=== PATIENT | male | born 1955 | race Caucasian/White ===

== ENCOUNTER 2016-11-18 12:25 | Inpatient (IN) | payer OTHER ==
--- NOTE | ~2016-11-18 | HP ---
History And Physical [place] [id number] [facility] [place]. [address] NAME: AMELIA SHIPMAN : 59 STATUS : ADM IN [facility]#: [id number] AGE: 61 ADM/REG DATE : 11/18/16 MR#: [id number] REPORT SERV DATE: 11/19/16 DICTATED BY: JOMAR SEPULVEDA DATE: 11/18/16 REPORT STATUS : Draft TRANSCRIBED BY: MODSteven DATE: 11/18/16 DATE OF ADMISSION: 11/18/2016 REASON FOR ADMISSION: NSTEMI. HISTORY OF PRESENT ILLNESS: Mr. Shipman is a 61-year-old gentleman with a history of CAD status post four-vessel CABG ([address]pp), significant carotid artery disease status post bilateral carotid endarterectomy, significant peripheral vascular disease, status post multiple stents in the bilateral lower extremity vessels. and renal cell carcinoma of his left kidney status post left nephrectomy, and active tobacco smoking (one pack per day, 50-pack years) who presents to [facility] with complaints of substernal chest pressures that are radiating to his left arm, as well as his left neck over the past three to four days. The patient states that he was in his usual state of health up until that time when he started to develop pain in the central chest at rest while not exerting himself at home. These were with infrequent dosing with sublingual nitroglycerin, but continued over the course of the past three to four days and have progressed and he is getting less relief and chest pressure/pains are becoming more severe. Over the past one day, he has also had associated lightheadedness with his chest pain. Collectively, these symptoms prompted him to present to [facility] for further evaluation and cardiac care. He last saw Dr. Vallecillo approximately two to two and a half years ago. ALLERGIES: NONE. PAST MEDICAL HISTORY: As above. FAMILY HISTORY: Significant for heart disease in his father diagnosed in his 60s. No one else per the patient notes. SOCIAL HISTORY: Denies drug use or drinking alcohol. He is an active tobacco smoker of approximately one pack per day (50-pack years total). REVIEW OF SYSTEMS: As above, all other systems otherwise negative. PHYSICAL EXAMINATION: VITAL SIGNS: Blood pressure 138/77, pulse 73, temperature 98.4. GENERAL: Well developed, well nourished, no acute distress. NEURO: Awake, alert and oriented x3; no focal deficits, appropriate mood. HEENT: Moist mucous membranes, anicteric sclerae, no nasal discharge. NECK: No JVD, no carotid bruit. LUNGS: Clear to auscultation bilaterally, no wheezes, rales or rhonchi. CV: Regular rhythm, normal S1/S2, no murmurs, rubs or gallops. ABDOMEN: Soft, non-tender, non-distended, no rebound or guarding. EXTREMITIES: No pitting edema, normal distal pulses. SKIN: Warm, dry and intact; no rash. History And Physical [address] [address] NAME: AMELIA SHIPMAN : 59 STATUS : ADM IN [facility]#: [id number] AGE: 61 ADM/REG DATE : 11/18/16 MR#: [id number] REPORT SERV DATE: 11/19/16 DICTATED BY: JOMAR SEPULVEDA DATE: 11/18/16 REPORT STATUS : Draft TRANSCRIBED BY: MOSHE DATE: 11/18/16 PERTINENT TEST FINDINGS: EKG, rhythm/sinus bradycardia. No pathologic Q-waves. Bilateral T wave inversions. Troponin of 0.2, creatinine 1.79, previously ranging from 1.2-2.2. Glucose 97, potassium 4.4. Hemoglobin 14.1, white blood cell count 8.7. Magnesium 1.8. IMPRESSION AND PLAN: Mr. Shipman is a 61-year-old gentleman with a history of significant cardiovascular disease, coronary, carotid, iliac/peripheral), who presents with chest pain radiating to his left arm and left neck in the setting of troponin of 0.22 due to non-ST elevation myocardial infarction. I spoke with him at length regarding the probable need to proceed with coronary angiography with plus or minus percutaneous coronary intervention. He understands the risks and benefits of this procedure including but not limited to, myocardial infarction, , stroke, kidney injury, failure, and given the complications, in particular kidney injury with his history of one kidney that is currently functioning poorly (creatinine 1.8), we will medically manage him for the time being. I have consulted Nephrology to provide guidance on renal management should he need angiography over the coming days. Otherwise, pending his troponin trend, clinical course, as well as other objective findings on his echocardiogram, it may be in his better overall interest to forego coronary angiography at this point in time. He is amenable with this plan and would like to hold off on angiography until Nephrology sees him and we have further data to guide us. Otherwise, I will start him on a heparin drip, continue aspirin, statin, and beta-kiley. His enzymes will be trended. Rhythm will be checked. VR/MODL Jomar Sepulveda MD / [id number] CC: David Maldonado M.D.
--- NOTE | ~2016-11-18 | CN ---
Consultation Report [facility] [address] [place]. [address] NAME: AMELIA SHIPMAN : 59 STATUS : ADM IN [facility]#: [id number] AGE: 61 ADM/REG DATE : 11/18/16 MR#: [id number] REPORT SERV DATE: 11/18/16 DICTATED BY: HILARIA ZELAYA DATE: 11/18/16 REPORT STATUS : Draft TRANSCRIBED BY: MODL DATE: 11/18/16 NEPHROLOGY CONSULT DATE OF CONSULTATION: 11/18/2016 REQUESTING PHYSICIAN: Jomar Alejandro MD REASON FOR CONSULT: Chronic kidney disease, solitary kidney, in a patient who needs cardiac catheterization. HISTORY OF PRESENT ILLNESS: Mr. Shipman is a 61-year-old white male, with chronic kidney disease. His baseline creatinine is 1.3 to 1.6 since April 2014. He is status post left nephrectomy for cancer in July 2012. He follows with Dr. Hernandez in the office of [facility], but recent labs from the hospice are not available at the time of this dictation. However, most recent creatinine prior to today was 1.37 in May 2016. He saw Urology in the office yesterday and had a normal cystoscopy and was given one dose of Cipro. He came in today for worsening unstable angina that began on Tuesday night 11/15/2016. Chest pain today at 10:00 a.m. worsened and radiated to his left jaw and left arm, prompting his visit to the ER. Here a chest x-ray showed no infiltrates and troponin was 0.20 and creatinine of 1.79. PAST MEDICAL HISTORY: 1. CKD, baseline creatinine 1.3 to 1.6 since April 2014. 2. Left nephrectomy for cancer in July 2012. Patent right renal artery on arteriogram in November 2012. 3. CABG x4 in 2005. 4. Hypertension. 5. Hyperlipidemia. 6. Bilateral carotid endarterectomies in 2013. 7. Bilateral iliac artery stents in 2012. MEDICATIONS: Allopurinol, amlodipine, aspirin, Lipitor, Coreg, Prilosec, and Zoloft. FAMILY HISTORY: No ESRD. SOCIAL HISTORY: Longtime smoker. . Lives in [place], [place]. 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 REVIEW OF SYSTEMS: Please see HPI. Denies OTC NSAIDs other than daily aspirin. Denies urinary outlet obstructive symptoms. Consultation Report [facility] [address] [place]. [address] NAME: AMELIA SHIPMAN : 59 STATUS : ADM IN PAT#: [id number] AGE: 61 ADM/REG DATE : 11/18/16 MR#: [id number] REPORT SERV DATE: 11/18/16 DICTATED BY: HILARIA ZELAYA DATE: 11/18/16 REPORT STATUS : Draft TRANSCRIBED BY: MOSHE DATE: 11/18/16 PHYSICAL EXAMINATION: VITAL SIGNS: Temperature 97, pulse 60, respirations 18, blood pressure was 64/87, and 93% sat on room air. GENERAL: He is a pleasant middle-aged white male, awake, alert, oriented, and cooperative with the exam. Good historian, accompanied by supportive family. He sitting in hospital bed. In no distress. HEENT: Sclerae without icterus. Conjunctivae not injected. Oropharynx is clear. NECK: No JVD. LUNGS: Bilateral rhonchi without dyspnea or tachypnea on room air. CARDIOVASCULAR: Bradycardic rate with regular rhythm. ABDOMEN: Soft, nontender, and nondistended. Bowel sounds present throughout. No rebound, guarding, or peritoneal signs. No reproducible chest wall tenderness. EXTREMITIES: Without edema. SKIN: Exam shows bruise on the right hand. NEURO: Grossly nonfocal. GENITOURINARY: Deferred. PSYCH: Mood and affect are appropriate. MUSCULOSKELETAL: Shows no active tenosynovitis or gout. LABORATORY DATA: Sodium 141, potassium 4.4, bicarb 27, BUN 18, creatinine 1.8. GFR 41 mL/minute. Calcium 9, magnesium 1.8. Troponin 0.2. INR 1.0, white count 8.7, with 10% eosinophils, hemoglobin 14.1, and platelets 262,000. ASSESSMENT/PLAN: Mr. Shipman has chronic kidney disease, with previous baseline creatinine of 1.3 to 1.6, and prior left nephrectomy, coronary artery disease, status post bypass surgery, hypertension, hyperlipidemia, carotid endarterectomies, and bilateral iliac artery stents. Now presents with non-ST elevation and unstable angina. Long discussion with patient and family. They understands the risk of worsening acute kidney injury and possible dialysis dependence with contrast. However, if renal function tomorrow is not worse, would recommend proceeding with cardiac catheterization, based on his clinical picture if okay with Cardiology. IV fluids tonight. No JANAY inhibitor or ARB at this time. Watch labs closely. We will follow with you. STANFORD/MOSHE Hilaria Zelaya M.D. / [id number] CC: Jomar Alejandro MD Consultation Report [address] [place]. [address] NAME: AMELIA SHIPMAN : 59 STATUS : ADM IN PAT#: [id number] AGE: 61 ADM/REG DATE : 11/18/16 MR#: [id number] REPORT SERV DATE: 11/18/16 DICTATED BY: HILARIA ZELAYA DATE: 11/18/16 REPORT STATUS : Draft TRANSCRIBED BY: MOSHE DATE: 11/18/16 David Maldonado M.D. Aakash Hernandez M.D.
[2016-11-18 10:55] LABS: BASOPHILS 0.6 %; BASOPHILS ABSOLUTE 0.05 10/3/uL (0.0-0.16); EOSINOPHILS 9.9 %; EOSINOPHILS ABSOLUTE 0.86 10/3/uL (0.0-0.53); HEMATOCRIT 42.4 % (40.0-51.0); HEMOGLOBIN 14.1 g/dL (13.6-17.8); IMMATURE GRANULOCYTES 0.2 %; IMMATURE GRANULOCYTES ABSOLUTE 0.02 10/3/uL (0.0-0.11); LYMPHOCYTES 32.5 %; LYMPHOCYTES ABSOLUTE 2.82 10/3/uL (0.67-4.30); MEAN CORPUS HGB CONC 33.3 g/dL (32.0-36.0); MEAN CORPUSCULAR HEMOGLOB 30.1 pg (26.0-34.0); MEAN CORPUSCULAR VOLUME 90.6 fL (80-100); MEAN PLATELET VOLUME 10.7 fL (9.2-13.0); MONOCYTES 7.2 %; MONOCYTES ABSOLUTE 0.62 10/3/uL (0.21-1.20); NEUTROPHILS 49.6 %; RBC DISTRIBUTION WIDTH 14.1 % (12.0-16.0); RED CELL COUNT 4.68 10/6/uL (4.7-6.1); WHITE BLOOD CELLS 8.7 10/3/uL (4.5-10.5)
[2016-11-18 10:58] LABS: MANUAL DIFF NO %; PLATELET COUNT 262 10/3/uL (150-400)
[2016-11-18 11:03] LABS: PARTIAL THROMBO TIME 28.6 SEC (22.5-37.2); PROTIME (NOT ORD) 12.8 SEC (12.0-14.5)
[2016-11-18 11:11] LABS: BUN (BLOOD UREA NITROGEN) 18 MG/DL (6-23); CHLORIDE, SERUM 106 MMOL/L (96-112); CO2 (CARBON DIOXIDE) 27 MMOL/L (24-34); CREATININE 1.79 MG/DL (0.70-1.30); GFR AFRICAN AMERICAN 47 ML/MIN (>=60); GFR NON AFRICAN AMERICAN 41 ML/MIN (>=60); GLUCOSE, SERUM 97 MG/DL (60-99); POTASSIUM, SERUM 4.4 MMOL/L (3.5-5.3); SODIUM, SERUM 141 MMOL/L (135-148)
[2016-11-18 11:14] LABS: CHEST PAIN PROFILE TAT 0 Hrs 23 Mins
[~2016-11-18 12:25] MED LIST: ASAB PO; ASABAYER PO; ASMANEX INH; CHANTIX1 PO; COREG3 PO; COREG6 PO; GLUCPH PO; LIPITOR20 PO; LIPITOR40 PO; MICARDIS80 PO; NITROSTAT0.4 MG SL; NORCO1 TA1 PO; NORV5 PO; PERCOCET1 TA2 PO; PLAVIX PO; PLETAL50 PO; PRAVACHOL40 MG PO; PRILO PO; PRILOSEC40 MG PO; VICODIN HP1 TAB PO; VYTORIN 10/40 T1 TAB PO; Z100 PO; Z300 PO; ZOL50 PO
[2016-11-18 13:22] LABS: CPK 43 U/L (0-200)
[2016-11-18 13:23] LABS: CK-MB 0.7 NG/ML
[2016-11-18 17:09] LABS: CK-MB 0.6 NG/ML; CPK 39 U/L (0-200)
[2016-11-18 17:10] LABS: TROPONIN I 0.19 NG/ML (<0.05)
[2016-11-18 23:17] LABS: CK-MB < 0.5 NG/ML; CPK 42 U/L (0-200); TROPONIN I 0.25 NG/ML (<0.05)
[2016-11-19 04:32] LABS: BASOPHILS 0.6 %; BASOPHILS ABSOLUTE 0.05 10/3/uL (0.0-0.16); EOSINOPHILS 7.5 %; EOSINOPHILS ABSOLUTE 0.59 10/3/uL (0.0-0.53); HEMATOCRIT 40.1 % (40.0-51.0); HEMOGLOBIN 13.7 g/dL (13.6-17.8); IMMATURE GRANULOCYTES 0.3 %; IMMATURE GRANULOCYTES ABSOLUTE 0.02 10/3/uL (0.0-0.11); LYMPHOCYTES ABSOLUTE 3.06 10/3/uL (0.67-4.30); MEAN CORPUS HGB CONC 34.2 g/dL (32.0-36.0); MEAN CORPUSCULAR HEMOGLOB 31.2 pg (26.0-34.0); MEAN CORPUSCULAR VOLUME 91.3 fL (80-100); MEAN PLATELET VOLUME 10.8 fL (9.2-13.0); MONOCYTES 7.4 %; MONOCYTES ABSOLUTE 0.58 10/3/uL (0.21-1.20); NEUTROPHILS 45.2 %; NEUTROPHILS ABSOLUTE 3.55 10/3/uL (2.02-8.40); PLATELET COUNT 225 10/3/uL (150-400); RED CELL COUNT 4.39 10/6/uL (4.7-6.1); WHITE BLOOD CELLS 7.9 10/3/uL (4.5-10.5)
[2016-11-19 04:36] LABS: MANUAL DIFF NO %
[2016-11-19 04:56] LABS: BUN (BLOOD UREA NITROGEN) 19 MG/DL (6-23); CALCIUM, SERUM 8.7 MG/DL (8.5-10.4); CHLORIDE, SERUM 108 MMOL/L (96-112); CHOL/HDL RATIO(NOT ORDER) 6.3 (0-5); CHOLESTEROL 219 MG/DL (< 200); CO2 (CARBON DIOXIDE) 26 MMOL/L (24-34); CPK 35 U/L (0-200); CREATININE 1.75 MG/DL (0.70-1.30); GFR AFRICAN AMERICAN 48 ML/MIN (>=60); GFR NON AFRICAN AMERICAN 42 ML/MIN (>=60); GLUCOSE, SERUM 86 MG/DL (60-99); HDL CHOLESTEROL 35 MG/DL (> 39); LDL CHOLESTEROL 137 MG/DL (< 130); NON-HDL CHOLESTEROL 184 MG/DL (< 160); POTASSIUM, SERUM 4.8 MMOL/L (3.5-5.3); SGPT(ALT) 24 U/L (5-65); SODIUM, SERUM 143 MMOL/L (135-148); TRIGLYCERIDE 237 MG/DL (< 150)
[2016-11-19 05:02] LABS: CK-MB 0.8 NG/ML; TROPONIN I 0.25 NG/ML (<0.05)
[2016-11-19 10:24] LABS: BASOPHILS 0.6 %; BASOPHILS ABSOLUTE 0.05 10/3/uL (0.0-0.16); EOSINOPHILS 8.3 %; EOSINOPHILS ABSOLUTE 0.67 10/3/uL (0.0-0.53); HEMATOCRIT 42.6 % (40.0-51.0); IMMATURE GRANULOCYTES 0.1 %; IMMATURE GRANULOCYTES ABSOLUTE 0.01 10/3/uL (0.0-0.11); LYMPHOCYTES 32.4 %; LYMPHOCYTES ABSOLUTE 2.62 10/3/uL (0.67-4.30); MEAN CORPUS HGB CONC 32.9 g/dL (32.0-36.0); MEAN CORPUSCULAR HEMOGLOB 30.1 pg (26.0-34.0); MEAN CORPUSCULAR VOLUME 91.6 fL (80-100); MEAN PLATELET VOLUME 10.6 fL (9.2-13.0); MONOCYTES 6.8 %; MONOCYTES ABSOLUTE 0.55 10/3/uL (0.21-1.20); NEUTROPHILS 51.8 %; NEUTROPHILS ABSOLUTE 4.19 10/3/uL (2.02-8.40); PLATELET COUNT 230 10/3/uL (150-400); RBC DISTRIBUTION WIDTH 14.3 % (12.0-16.0); RED CELL COUNT 4.65 10/6/uL (4.7-6.1); WHITE BLOOD CELLS 8.1 10/3/uL (4.5-10.5)
[2016-11-19 10:25] LABS: MANUAL DIFF NO %
[2016-11-19 10:31] LABS: PROTIME (NOT ORD) 13.1 SEC (12.0-14.5)
[2016-11-19 10:40] LABS: BUN (BLOOD UREA NITROGEN) 16 MG/DL (6-23); CALCIUM, SERUM 8.9 MG/DL (8.5-10.4); CHLORIDE, SERUM 107 MMOL/L (96-112); CHOL/HDL RATIO(NOT ORDER) 6.2 (0-5); CHOLESTEROL 237 MG/DL (< 200); CK-MB 0.6 NG/ML; CO2 (CARBON DIOXIDE) 28 MMOL/L (24-34); CPK 29 U/L (0-200); CREATININE 1.52 MG/DL (0.70-1.30); GFR AFRICAN AMERICAN 57 ML/MIN (>=60); GFR NON AFRICAN AMERICAN 49 ML/MIN (>=60); GLUCOSE, SERUM 99 MG/DL (60-99); HDL CHOLESTEROL 38 MG/DL (> 39); LDL CHOLESTEROL 150 MG/DL (< 130); NON-HDL CHOLESTEROL 199 MG/DL (< 160); POTASSIUM, SERUM 4.3 MMOL/L (3.5-5.3); SODIUM, SERUM 142 MMOL/L (135-148); TRIGLYCERIDE 248 MG/DL (< 150); TROPONIN I 0.16 NG/ML (<0.05)
[2016-11-20 05:12] LABS: BASOPHILS 0.8 %; BASOPHILS ABSOLUTE 0.04 10/3/uL (0.0-0.16); EOSINOPHILS 9.7 %; HEMATOCRIT 39.4 % (40.0-51.0); HEMOGLOBIN 13.3 g/dL (13.6-17.8); IMMATURE GRANULOCYTES 0.2 %; IMMATURE GRANULOCYTES ABSOLUTE 0.01 10/3/uL (0.0-0.11); LYMPHOCYTES 36.6 %; LYMPHOCYTES ABSOLUTE 1.89 10/3/uL (0.67-4.30); MANUAL DIFF NO %; MEAN CORPUS HGB CONC 33.8 g/dL (32.0-36.0); MEAN CORPUSCULAR HEMOGLOB 30.9 pg (26.0-34.0); MEAN CORPUSCULAR VOLUME 91.6 fL (80-100); MONOCYTES 9.3 %; MONOCYTES ABSOLUTE 0.48 10/3/uL (0.21-1.20); NEUTROPHILS 43.4 %; NEUTROPHILS ABSOLUTE 2.25 10/3/uL (2.02-8.40); PLATELET COUNT 200 10/3/uL (150-400); RBC DISTRIBUTION WIDTH 14.2 % (12.0-16.0); WHITE BLOOD CELLS 5.2 10/3/uL (4.5-10.5)
[2016-11-20 05:20] LABS: BUN (BLOOD UREA NITROGEN) 14 MG/DL (6-23); CALCIUM, SERUM 8.7 MG/DL (8.5-10.4); CHLORIDE, SERUM 110 MMOL/L (96-112); CO2 (CARBON DIOXIDE) 25 MMOL/L (24-34); CREATININE 1.48 MG/DL (0.70-1.30); GFR AFRICAN AMERICAN 59 ML/MIN (>=60); GFR NON AFRICAN AMERICAN 51 ML/MIN (>=60); GLUCOSE, SERUM 96 MG/DL (60-99); PHOSPHORUS, SERUM 3.4 MG/DL (2.5-4.5); POTASSIUM, SERUM 4.3 MMOL/L (3.5-5.3); SODIUM, SERUM 143 MMOL/L (135-148)
[2016-11-20] MEDS ORDERED: EFFIENT10 PO (14:17)
== END 2016-11-20 14:30 | disposition home or self-care (01) | DRG 247 ==
LOC: ER 12:25 → 6NO 14:48 → SSU1 11-19 15:08
PROVIDERS: Emergency Medicine; Internal Medicine Cardiovascular Disease; Student in an Organized Health Care Education/Training Program
PROC: 027034Z Dilation of Coronary Artery, One Artery with Drug-eluting Intraluminal Device, Percutaneous Approach (ICD-10-PCS; principal; 2016-11-19)
PROC: 4A023N7 Measurement of Cardiac Sampling and Pressure, Left Heart, Percutaneous Approach (ICD-10-PCS; 2016-11-19)
PROC: B2151ZZ Fluoroscopy of Left Heart using Low Osmolar Contrast (ICD-10-PCS; 2016-11-19)
PROC: B2131ZZ Fluoroscopy of Multiple Coronary Artery Bypass Grafts using Low Osmolar Contrast (ICD-10-PCS; 2016-11-19)
PROC: B2181ZZ Fluoroscopy of Left Internal Mammary Bypass Graft using Low Osmolar Contrast (ICD-10-PCS; 2016-11-19)
PROC: B2111ZZ Fluoroscopy of Multiple Coronary Arteries using Low Osmolar Contrast (ICD-10-PCS; 2016-11-19)
DX: I21.4 Non-ST elevation (NSTEMI) myocardial infarction (principal); I25.810 Atherosclerosis of coronary artery bypass graft(s) without angina pectoris; I12.9 Hypertensive chronic kidney disease with stage 1 through stage 4 chronic kidney disease, or unspecified chronic kidney disease; I65.29 Occlusion and stenosis of unspecified carotid artery; I25.10 Atherosclerotic heart disease of native coronary artery without angina pectoris; F17.210 Nicotine dependence, cigarettes, uncomplicated; R00.1 Bradycardia, unspecified; N18.9 Chronic kidney disease, unspecified; E78.5 Hyperlipidemia, unspecified; I73.9 Peripheral vascular disease, unspecified; Z82.49 Family history of ischemic heart disease and other diseases of the circulatory system; Z85.528 Personal history of other malignant neoplasm of kidney; Z98.890 Other specified postprocedural states
CPT/HCPCS: 71020; 80048; 80061; 80069; 82550; 82553; 82962; 83735; 84460; 84484; 85025; 85347; 85610; 85730; 93005; 93459; 99152; 99153; 99291; A9270-GY; C1725; C1769; C1874; C1887; C1894; C8929; C9604; J2250; J2405; J3010; Q9957; Q9967